=== PATIENT | male | born 1975 | race Caucasian/White ===

== ENCOUNTER 2017-09-24 17:58 | Emergency (ER) | payer OTHER ==
[~2017-09-24] VITALS: Ht 188 cm; Wt 83.9 kg
--- NOTE | 2017-09-24 18:50 | NUR ---
STATUS PT UPDATED THAT SEVERAL PEOPLE HAD BEEN CALLING FOR HIM. PT STATED THAT HE DID NOT WANT TO TALK WITH ANYONE AT THIS TIME.
--- NOTE | 2017-09-24 19:20 | NUR ---
DPS OFFICER WITH PT
--- NOTE | 2017-09-24 19:49 | NUR ---
DR FERNANDEZ UPDATED ON PT'S STATUS
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
--- NOTE | 2017-09-24 20:57 | NUR ---
PT NOTIFIED OF HIS PARENTS REQUESTING TO SEE HIM, OK TO HAVE PARENTS COME TO HIS ER RM PER PT, PARENTS TO ER RM 7
--- NOTE | 2017-09-24 21:27 | NUR ---
DR FERNANDEZ WITH PT
--- NOTE | 2017-09-24 21:30 | NUR ---
VERBAL ORDER CHEST XRAY WITH LEFT RIB PER DR FERNANDEZ
--- NOTE | 2017-09-24 21:40 | NUR ---
PT'S PARENTS UPDATED ON XRAY ORDER AND WAITING FOR SHOW WORKER TO BE AVAILABLE FOR XRAY
--- NOTE | 2017-09-24 22:00 | NUR ---
pt to xray via wc
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
--- NOTE | 2017-09-24 22:10 | NUR ---
XRAYS COMPLETED PT TO RM 5 VIA WC, PT ALERT, CONVERSATIONAL.
--- NOTE | 2017-09-24 22:20 | NUR ---
DR FERNANDEZ UPDATED ON PT'S STATUS CHANGE IN XRAY, OK TO ORDER CT ABD/PELVIS/CHEST WITHOUT CONTRAST PER DR FERNANDEZ
--- NOTE | 2017-09-24 22:25 | NUR ---
PT AND PARENTS UPDATED ON CT ORDER.
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
--- NOTE | 2017-09-24 22:32 | NUR ---
PT TO CT VIA WC
--- NOTE | 2017-09-24 22:40 | NUR ---
PT RETURNED TO FROM CT, WITHOUT DIFFICULTY
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
[2017-09-24 23:04] LABS: BASOPHIL % 0.1 % (0.0-0.2); EOSINOPHIL % 0.1 % (0.0-5.0); HEMOGLOBIN 15.3 g/dL (13.9-16.3); LYMPHOCYTES # 1.1 10^3/uL (1.0-4.8); LYMPHOCYTES % 7.3 % (24.0-44.0); MEAN CELL HGB 29.3 pg (26-34); MEAN CELL HGB CONCENTRATION 32.8 g/dL (33-37); MEAN CORP VOLUME 89.5 fL (78-100); MEAN PLATELET VOLUME 8.9 fL (7.8-11.0); MONOCYTES # 1.5 10^3/uL (0.3-0.8); MONOCYTES % 10.1 % (5.0-12.0); RED CELL DISTRIBUTION WIDTH 12.9 % (11.5-14.5); WHITE BLOOD CELL 14.6 10^3/uL (4.5-11.0)
[2017-09-24 23:14] LABS: CALCIUM 8.6 mg/dL (8.4-10.5); CARBON DIOXIDE 20.3 mmol/L (20.0-32)
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
[2017-09-24] MEDS ORDERED: NS 1000ML 1,000 ML ONE (23:21)
--- NOTE | 2017-09-24 23:25 | NUR ---
PT RESTING ON STRETCHER, ALERT AND CONVERSATIONAL, BRUISING APPEARING TO LEFT ABD, ABD SOFT. NS ONE LITER IV STARTED.
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
[2017-09-24] MEDS ORDERED: NS 1000ML 1,000 ML IV STA (23:37)
[2017-09-25] MEDS ORDERED: LIDOCAINE 1% VIAL ONE (00:25)
[2017-09-25] MEDS ORDERED: SODIUM CHLORIDE IR ONE (00:26)
--- NOTE | 2017-09-25 00:32 | NUR ---
WOUND CARE DR FERNANDEZ WITH PT, PREPARING TO SUTURE WOUND, UPDATED PT AND PARENTS ON TEST RESULTS.
--- NOTE | 2017-09-25 01:12 | NUR ---
DR FERNANDEZ FINISHED SUTURING WOUND. PT OLIVERIO CESPEDES.
--- NOTE | 2017-09-25 01:20 | NUR ---
PT VERBALIZED HE WANTED TO GO HOME. PARENTS STATED THEY WERE COMFORTABLE WITH TAKING PT HOME WITH THEM.
--- NOTE | 2017-09-25 01:24 | NUR ---
OK TO DISCHARGE HOME WITH PARENTS PER DR FERNANDEZ.
[2017-09-25] MEDS ORDERED: TYLENOL #3 PO ONE (01:31)
--- NOTE | 2017-09-25 01:33 | NUR ---
MEDICATIONS PAIN STATUS AND TETANUS STATUS DISCUSSED WITH PT AND PARENTS. DR FERNANDEZ UPDATED. VERBAL ORDER TETANUS IM AND TYLENOL WITH CODEINE TWO TABLETS DR FERNANDEZ
[2017-09-25] MEDS ORDERED: TYLENOL #3 PO STA (01:35)
[2017-09-25] MEDS ORDERED: TRIPLE ANTIBIOTIC OINTMENT TP ONE (01:37)
[2017-09-25] MEDS ORDERED: BOOSTRIX VACCINE SYRINGE IM ONE (02:00)
--- NOTE | 2017-09-25 02:00 | NUR ---
STATUS IV DC'D TIP INTACT. PT ENCOURAGED TO MAKE POSITION CHANGES SLOWLY, PT SITTING UP, INCREASED PAIN WITH MOVEMENT, ENCOURAGED TO TAKE SLOW DEEP BREATHS, IMPORTANCE OF TAKING DEEP BREATHS DISCUSSED. PT AND PARENT DENY ANY CONCERNS WITH GOING HOME. PT CONTINUES TO DENY ANY HEAD INJURY, DENIES ANY NECK PAIN, ABD SOFT, PT DENIES FEELING DIZZY OR LIGHTHEADED. DRESSING TO LEFT ELBOW/SUTURES WITH ANTIBIOTIC OINTMENT.
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
[2017-09-25 03:36] VITALS: BP 122/64
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
== END 2017-09-25 02:08 | disposition home or self-care (01) ==
LOC: ER 17:58 → EDBD 17:58 → ER 09-25 02:08
DX: S22.32XA Fracture of one rib, left side, initial encounter for closed fracture (principal); S51.012A Laceration without foreign body of left elbow, initial encounter; V43.52XA Car driver injured in collision with other type car in traffic accident, initial encounter; Y93.89 Activity, other specified; Y92.410 Unspecified street and highway as the place of occurrence of the external cause; Y99.8 Other external cause status
CPT/HCPCS: 12002; 36415; 71101; 71250; 73070; 74176; 80053; 85025; 96360; 96361; 99285; J2001; J3490; J7030 ×2